=== PATIENT | female | born 1980 | race African-American/Black ===

== ENCOUNTER 2016-05-06 12:14 | Emergency (ER) | payer BC ==
[~2016-05-06] VITALS: Ht 154.9 cm; Wt 77.1 kg
[~2016-05-06 12:14] MED LIST: HYDR12.58 PO; LISI10TA2 PO; SPIR25TA3 PO
[2016-05-06 12:17] VITALS: BP 136/93
--- NOTE | 2016-05-06 13:04 | PHYS DOC ---
Past Medical History Past Medical History: Hypertension Past Surgical History: No Surgical History Alcohol Use: Rarely Drug Use: None Adult General Chief Complaint Chief Complaint: FINGER INJURY HPI HPI Patient is a 36 year old female who presents with mild left middle finger pain that began 10 days ago after she jammed her left middle finger stuffing mail in the mailbox. Review of Systems Review of Systems Constitutional: Denies fever or chills [] Eyes: Denies change in visual acuity, redness, or eye pain [] Musculoskeletal: mild left middle finger pain Integument: Denies rash or skin lesions [] Neurologic: Denies headache, focal weakness or sensory changes [] Endocrine: Denies polyuria or polydipsia [] Allergies Allergies Allergies Coded Allergies Type Severity Reaction Last Updated Verified No Known Drug Allergies 05/06/16 No Physical Exam Physical Exam Constitutional: Well developed, well nourished, no acute distress, non-toxic appearance. [] HENT: Normocephalic, atraumatic, bilateral external ears normal, oropharynx moist, no oral exudates, nose normal. [] Skin: Warm, dry, no erythema, no rash. [] Back: No tenderness, no CVA tenderness. [] Extremities: Left middle finger with small amount of soft tissue swelling around the PIP joint. Tenderness on palpation of the left middle finger PIP joint. Full range of motion to the left middle finger including flexion and extension of the MIP, PIP, and DIP joints. +2 left middle radial pulse. Cap refill less than 2 seconds the left upper extremity. Sensation intact to the left upper extremity. Neurologic: Alert and oriented X 3, normal motor function, normal sensory function, no focal deficits noted. [] Psychologic: Affect normal, judgement normal, mood normal. [] Current Patient Data Vital Signs Vital Signs Date Time Temp Pulse Resp B/P Pulse Ox O2 Delivery O2 Flow Rate FiO2 05/06/16 12:17 97.9 86 18 98 Room Air 97.9 EKG EKG [] Radiology/Procedures Radiology/Procedures [] Course & Med Decision Making Course & Med Decision Making Pertinent Labs and Imaging studies reviewed. (See chart for details) Patient is in the ED with left middle finger pain that began 10 days ago after jamming it. Left middle finger x-ray interpreted by radiologist is negative for any acute findings. Finger splint was applied to the left middle finger by the ED RN, neurovascular exam done by me is normal, cap refill less than 2 seconds. Ice elevation encouraged. Follow-up with orthopedic doctor in a week. Dragon Disclaimer Dragon Disclaimer This electronic medical record was generated, in whole or in part, using a voice recognition dictation system. Departure Departure Impression: Primary Impression: Sprain of left middle finger Disposition: HOME, SELF-CARE Condition: STABLE Referrals: UNKNOWN PCP NAME (PCP) MOLINA VELÁSQUEZ MD Follow-up with the orthopedic doctor in one week Patient Instructions: Finger Sprain, [id number] Additional Instructions: You have left middle finger sprain. Wear the splint as needed. Ice and elevate the extremity. Follow-up with the provided doctor in one week Scripts Naproxen 500 Mg Tablet.dr1 Tab PO BID #60 TAB Ref 1 Prov:MARY ESTEVEZ APRN 05/06/16 Problem Qualifiers Primary Impression: Sprain of left middle finger Encounter type: initial encounter Sprain of finger site: metacarpophalangeal joint Qualified Code: S63.653A - Sprain of metacarpophalangeal joint of left middle finger, initial encounter MARY ESTEVEZ APRN May 06, 2016 13:04
--- NOTE | 2016-05-06 13:26 | RAD ---
Left middle finger, 3 views, 05/06/2016: History: Trauma, pain No fracture or dislocation is identified. The soft tissues are unremarkable. IMPRESSION: No significant abnormality is detected.
[2016-05-06] MEDS ORDERED: NAPR500T8 PO (13:33)
== END 2016-05-06 13:51 | disposition home or self-care (01) ==
LOC: ER 12:14
DX: S63.653A Sprain of metacarpophalangeal joint of left middle finger, initial encounter (principal); I10 Essential (primary) hypertension; W23.1XXA Caught, crushed, jammed, or pinched between stationary objects, initial encounter; Y93.89 Activity, other specified; Y92.89 Other specified places as the place of occurrence of the external cause; Y99.8 Other external cause status
CPT/HCPCS: 29130; 73140; 99284-25

== ENCOUNTER 2017-02-14 17:54 | Emergency (ER) | payer BC ==
[2017-02-14] MEDS: NAPROXEN 500 MG TABLET PO (19:21)
[2017-02-14] MEDS: CYCLOBENZAPRINE 10 MG TABLET. PO (19:30)
== END 2017-02-14 19:47 | disposition home or self-care (01) ==
LOC: ER 17:54
DX: S46.911A Strain of unspecified muscle, fascia and tendon at shoulder and upper arm level, right arm, initial encounter (principal); H65.193 Other acute nonsuppurative otitis media, bilateral; I10 Essential (primary) hypertension; X58.XXXA Exposure to other specified factors, initial encounter; Y93.89 Activity, other specified; Y92.89 Other specified places as the place of occurrence of the external cause; Y99.8 Other external cause status
CPT/HCPCS: 99283

== ENCOUNTER 2017-07-11 01:16 | Emergency (ER) | payer SELFPAY, BC ==
[2017-07-11] MEDS ORDERED: METOCLOPRAMIDE 10 MG TABLET. (01:48)
[2017-07-11] MEDS ORDERED: BUTALB/APAP/CAFEIN 50/325/40MG TABLET. (01:48)
[2017-07-11] MEDS: diphenhydrAMINE HCL 25 MG CAPSULE PO (01:52)
[2017-07-11] MEDS: METOCLOPRAMIDE 10 MG TABLET. PO (01:52)
[2017-07-11] MEDS: BUTALB/APAP/CAFEIN 50/325/40MG TABLET. PO (01:52)
== END 2017-07-11 02:03 | disposition home or self-care (01) ==
LOC: ER 01:16
DX: G43.909 Migraine, unspecified, not intractable, without status migrainosus (principal); I10 Essential (primary) hypertension
CPT/HCPCS: 99284; J8597; Q0163

== ENCOUNTER 2021-07-13 18:50 | Emergency (ER) | payer OTHER ==
[~2021-07-13] VITALS: Ht 154.9 cm; Wt 72.7 kg
[~2021-07-13 18:50] MED LIST changes: +AMOX875T PO; +CYCL10TA19 PO; +DICL50TA4 PO; +LISI10TA16 PO; -LISI10TA2 PO; +METO10TA81 PO; +NAPR500T8 PO; -SPIR25TA3 PO; +SPIR25TA5 PO
[2021-07-13] MEDS ORDERED: MORPHINE SULFATE 4 MG/ML INJ. IV PRN (20:15)
[2021-07-13] MEDS ORDERED: HYDR-2761 PO (20:45)
--- NOTE | 2021-07-13 20:46 | PHYS DOC ---
Past Medical History Past Medical History: Hypertension Past Surgical History: No Surgical History Smoking Status: Never Smoker Alcohol Use: Rarely Drug Use: None General Adult EDM: Chief Complaint: HEMORRHOIDS HPI: HPI: Patient is a 41 year old female with a past medical history of hypertension who presents to the emergency department today with concerns for hemorrhoids. Patient states about a week ago she noticed a hemorrhoid. She states since that time she has had a rectal pain. She is also had a scant amount of bleeding. She describes the pain as sharp. There are no pallative or provocative factors for the pain. She has used Preparation H without relief. The pain does not r adiate. She states pain is about a 7 out of 10. Has been intermittent. Review of Systems: Review of Systems: Constitutional: Denies fever or chills. [] Eyes: Denies change in visual acuity. [] HENT: Denies nasal congestion or sore throat. [] Respiratory: Denies cough or shortness of breath. [] Cardiovascular: Denies chest pain or edema. [] GI: Denies abdominal pain, nausea, vomiting, or diarrhea. [] : Denies dysuria. [] Musculoskeletal: Denies back pain or joint pain. [] Integument: Denies rash. [] Neurologic: Denies headache, focal weakness or sensory changes. [] Endocrine: Denies polyuria or polydipsia. [] Lymphatic: Denies swollen glands. [] Psychiatric: Denies depression or anxiety. [] Heart Score: C/O Chest Pain: No Family History: Family History: Noncontributory Current Medications: Current Medications Medications (Trade) Dose Ordered Sig/Mohamud Start Time Stop Time Status Last Admin Dose Admin Morphine Sulfate (Morphine Sulfate) 4 mg 1X PRN 07/13/21 20:15 07/13/21 20:23 DC 07/13/21 20:22 4 MG Allergies: Allergies: Allergies Coded Allergies Type Severity Reaction Last Updated Verified No Known Drug Allergies 05/06/16 No Physical Exam: PE: Constitutional: Well developed, well nourished, no acute distress, non-toxic appearance. [] HENT: Normocephalic, atraumatic, bilateral external ears normal, oropharynx moist, no oral exudates, nose normal. [] Eyes: PERRLA, EOMI, conjunctiva normal, no discharge. [] Neck: Normal range of motion, no tenderness, supple, no stridor. [] Cardiovascular:Heart rate regular rhythm, no murmur [] Lungs & Thorax: Bilateral breath sounds clear to auscultation [] Abdomen: Bowel sounds normal, soft, no tenderness, no masses, no pulsatile masses. [] Rectal: There is a 2 cm hemorrhoid at 1:00. Does not appear to be thrombosed. It is tender to palpation. It is easily reducible. Skin: Warm, dry, no erythema, no rash. [] Back: No tenderness, no CVA tenderness. [] Extremities: No tenderness, no cyanosis, no clubbing, ROM intact, no edema. [] Neurologic: Alert and oriented X 3, normal motor function, normal sensory function, no focal deficits noted. [] Psychologic: Affect normal, judgement normal, mood normal. [] Current Patient Data: Vital Signs: Vital Signs Date Time Temp Pulse Resp B/P (MAP) Pulse Ox O2 Delivery O2 Flow Rate FiO2 07/13/21 20:22 99 07/13/21 19:26 98.4 70 18 141/96 (111) Room Air 98.4 EKG: EKG: [] Radiology/Procedures: Radiology/Procedures: [] Impression: External hemorrhoid Course & Med Decision Making: Course & Med Decision Making Patient remained hemodynamically stable in the emergency department. She was evaluated at the bedside with physical exam. Patient was given 4 mg of morphine and her hemorrhoid was reduced at the bedside by myself. Patient experienced relief. She will be discharged home with a short course Lortab and given follow-up instructions. Katie Disclaimer: Katie Disclaimer: This electronic medical record was generated, in whole or in part, using a voice recognition dictation system. Departure Departure Impression: Primary Impression: External hemorrhoid Disposition: HOME / SELF CARE / HOMELESS Condition: IMPROVED Referrals: SURY MASSEY (PCP) Patient Instructions: Hemorrhoidectomy, Care After Scripts Hydrocodone Bit/Acetaminophen (HYDROCODONE-APAP 5-325 ) 1 Tab Tablet 1 TAB PO PRN Q6HRS PRN for PAIN, #5 TAB 0 Refills Prov: BENITO CALLEJAS MD 07/13/21 BENITO CALLEJAS MD July 13, 2021 20:45
[2021-07-13 21:00] VITALS: BP 128/74
== END 2021-07-13 21:10 | disposition home or self-care (01) ==
LOC: ER 18:50
DX: K64.4 Residual hemorrhoidal skin tags (principal); I10 Essential (primary) hypertension
CPT/HCPCS: 96374; 99284; J2270